=== PATIENT | male | born 1935 | race Caucasian/White ===

== ENCOUNTER 2017-01-07 13:38 | Inpatient (IN) ==
--- NOTE | 2017-01-07 14:26 | Emergency Department Note ---
Disposition Clinical Impression: Atrial fibrillation with rapid ventricular response, Elevated troponin I level , Heart failure Disposition: Admitted As Inpatient Condition: Serious Time of Disposition: 17:48 SOB HPI - General Chief Complaint: ED Shortness of Breath/Dyspnea Stated Complaint: SOB, ABD PAIN Source: patient, family Limitations: no limitations Nursing Notes Reviewed: Yes Vital Signs Reviewed: Yes - History of Present Illness Patient is a 81-year-old male complaining of worsening dyspnea on exertion for the past 2 weeks. Patient has a past history is significant for A. fib, DVT 2010, PE in 2012 and has been on Coumadin everyday since patient also has a history of prostate cancer. Patient states that past 2 days his shortness of breath got worse to where he is daily able to sip of the car without feeling severely short of breath. Patient reports episodes shortness of breath waking him from sleep as well. Patient had an echo in 2012 with an EF of 65-70%. Recent echo 8 days ago showed an EF of 10-15%. Patient was seen by Dr. Muñiz 5 days ago and had a heart catheter done 2 days ago which showed minor blockages and required no stenting. - Related Data Home Medications Medication Instructions Recorded Confirmed Albuterol Sulfate [Proair Hfa] 2 puff IH Q4H PRN 01/05/17 01/07/17 Furosemide [Lasix] 20 mg PO QPM 01/05/17 01/07/17 Warfarin [Coumadin] 5 mg PO SUMOTUTHSA 01/05/17 01/07/17 Furosemide [Lasix] 40 mg PO QAM 01/07/17 01/07/17 Tiotropium [place] [Spiriva] 18 mcg IH DAILY 01/07/17 01/07/17 Warfarin [Coumadin] 7.5 mg PO FR 01/07/17 01/07/17 Warfarin [Coumadin] 10 mg PO WE 01/07/17 01/07/17 Previous Rx's Medication Instructions Recorded Aspirin 81 mg PO DAILY #30 tab.chew 01/05/17 Metoprolol XL (24 HR) Succ [Toprol 50 mg PO DAILY #30 tab.er.24h 01/05/17 Xl] Allergies Allergy/AdvReac Type Severity Reaction Status Date / Time No Known Allergies Allergy Verified 01/05/17 06:36 Review of Systems: Patient admits to lightheadedness periodically shortness of breath, minor cough nonproductive. Patient denies fever, chest pain, back pain, changes in vision, ear pain, abdominal pain, diarrhea All systems ED: reviewed and negative except as stated. Past Medical History - Past Medical History Attestation: Yes The following information was validated with the patient. Source: patient, obtained from family Medical history: Reports: atrial fibrillation, cancer, CHF, COPD, DVT, pulmonary embolus Psychiatric history: Reports: no psych history - Social History Smoking Status: Current every day smoker Smokeless Tobacco Status: No Alcohol use: Reports: none Drug use: Reports: none Physical Exam Vital Signs Temperature 97.4 F L 01/07/17 13:40 Pulse Rate 110 01/07/17 13:40 Respiratory Rate 22 01/07/17 13:40 Blood Pressure 106/76 01/07/17 13:40 O2 Sat by Pulse Oximetry 96 01/07/17 13:40 Temperature 97.4 F L 01/07/17 13:40 Pulse Rate 122 01/07/17 14:06 Respiratory Rate 18 01/07/17 14:06 Blood Pressure 119/108 01/07/17 14:06 O2 Sat by Pulse Oximetry 96 01/07/17 14:06 Oxygen Delivery Oxygen Delivery Nasal Cannula -General Appearance: Patient is a 81-year-old male is alert and oriented 3 and in no acute distress. Patient appears comfortable sitting up in the bed -Neurological exam: Cranial nerves II-12 intact, no focal deficits observed, strength equal 5/5 bilaterally in upper and lower extremities, cerebellar motion test negative. Negative loss of sensation - Head Head exam: atraumatic, normocephalic, normal inspection - Eye Eye exam: Present: normal appearance, PERRL, EOMI, negative for scleral icterus negative for conjunctival pallor - ENT ENT exam: normal exam, normal oropharynx, mucous membranes dry - Neck Neck exam: Present: normal inspection, full ROM, trachea midline, negative JVD - Chest Chest inspection: Present: Patient has bilateral equal rise and fall of chest wall. Non-tender to palpation. - Respiratory Respiratory exam: Clear to auscultation bilaterally without wheezes rales or rhonchi Cardiovascular Cardiovascular exam: Present: irregular rate, irregular rhythm, normal heart sounds, without murmurs rubs or gallops. - Abdominal Exam Abdominal exam: Present: soft, nondistended, Non-Tender light and deep palpation in all quadrants. Bowel sounds normoactive throughout all 4 quadrants. Negative for hyper or hyperresonance. - Extremities Exam Extremities exam: Present: normal inspection, full ROM - Back Exam Back exam: Present: normal inspection, full ROM. Absent: tenderness, CVA tenderness (R), CVA tenderness (L) - Psychiatric Psychiatric exam: Present: normal affect, normal mood - Skin Skin exam: Present: warm, dry, intact, normal color - General Limitations: no limitations General appearance: alert Course Course Narrative: Patient seen and examined. Cardiac workup labs ordered. Chest x-ray ordered - Reevaluation(s) Reevaluation #1: Patient appears to be doing well. No complaints. Time: 15:48 Reevaluation #2: Patient still doing well. No complaints awaiting lab results Time: 16:20 Reevaluation #3: Patient doing well but complains it is hungry. Ordered diet for patient. The patient that be admitting him to the hospital secondary to discussing his case with Dr. Mclean. Patient agrees and sensory. Time: 17:00 - Consultations Consultation #1: Spoke to Dr. Mclean of cardiology. He states is unsure this time why the patient is currently in heart failure or how long the patient has been in A. fib. Recommend starting patient on IV amiodarone and admitted to medicine and let them know to consult him. Time: 16:50 Consultation #2: Dr. Ashley has accepted for admission. 1748 hrs. Time: 17:48 Vital Signs Temperature 97.4 F L 01/07/17 13:40 Pulse Rate 110 01/07/17 13:40 Respiratory Rate 22 01/07/17 13:40 Blood Pressure 106/76 01/07/17 13:40 O2 Sat by Pulse Oximetry 96 01/07/17 13:40 Temperature 98.2 F 01/09/17 11:18 Pulse Rate 108 01/09/17 11:18 Respiratory Rate 12 01/09/17 11:18 Blood Pressure 110/89 01/09/17 11:18 O2 Sat by Pulse Oximetry 96 01/09/17 11:18 Oxygen Delivery Oxygen Delivery Nasal Cannula Shortness of Breath/Dyspnea - MDM Narrative Medical decision making narrative: Mr Alejandro is 81-year-old male complaining of worsening dyspnea on exertion for the past 2 weeks. Patient has a past history is significant for A. fib, DVT 2010, PE in 2012 and has been on Coumadin everyday since patient also has a history of prostate cancer. Patient states that past 2 days his shortness of breath got worse to where he is daily able to sip of the car without feeling severely short of breath. Patient reports episodes shortness of breath waking him from sleep as well. Patient had an echo in 2012 with an EF of 65-70%. Recent echo 8 days ago showed an EF of 10-15%. Patient was seen by Dr. Muñiz 5 days ago and had a heart catheter done 2 days ago which showed minor blockages and required no stenting. Patient's chest x-ray shows: Per radiology: Stable cardiomegaly with mild vascular congestion. This could represent early congestive failure. Patchy asymmetric airspace right lower lobe could be asymmetric edema however superimposed pneumonia is also considered. Patient's CBC shows no signs of elevated white blood cell count or anemia. Patient's chemistry was unremarkable patient's troponin was elevated at 0.05. Patient is currently in no pain or discomfort and chest pain. Patient is having intermittent shortness of breath while at rest. Patient's heart rate 118 so 124 in A. fib RVR. Consulted with Dr. Mclean cardiology recommends patient patient on amiodarone the IV. Is unsure at this morning while patient is going through acute heart failure. There is some irregularity on the right lower lung field on chest x-ray with concerns that this may be pneumonia which is causing irritability leading to A. fib RVR. Patient did have slightly diminished breath sounds on the right with no rales or rhonchi. IV amiodarone was started. Patient is admitted to medicine. Dr. Ashley as accepted for admission. - Medical Records Medical records reviewed: Yes I reviewed the patient's medical records. - Lab Data Lab results reviewed: Yes I reviewed the patient's lab results. Lab results narrative: Short CBC 01/07/17 Range/Units 15:35 WBC 5.2 (4.3-11.1) K/mcL Hgb 14.6 (12.9-16.9) g/dL Hct 43.8 (37.5-50.1) % Plt Count 123 L (140-400) K/mcL Neutrophils # 2.9 (1.6-8.9) K/mcL BMP 01/07/17 Range/Units 15:35 Sodium 141 (136-145) mEq/L Potassium 3.8 (3.5-4.5) mEq/L Chloride 108 (98-109) mEq/L Carbon Dioxide 24 (19-29) mEq/L BUN 20 (8-26) mg/dL Creatinine 1.18 (0.72-1.25) mg/dL Glucose 84 (70-99) mg/dL Calcium 9.1 (8.6-10.8) mg/dL Cardiac Enzymes 01/07/17 Range/Units 15:35 Troponin I 0.05 H* (0-0.03) ng/mL Result diagrams: 01/08/17 04:36 01/09/17 03:55 Lab Results 01/07/17 01/07/17 01/07/17 Range/Units 15:35 15:35 15:35 WBC 5.2 (4.3-11.1) K/mcL RBC 4.61 (4.19-5.50) M/mcL Hgb 14.6 (12.9-16.9) g/dL Hct 43.8 (37.5-50.1) % MCV 95.0 (83.0-100.0) fL MCH 31.7 (28.0-33.3) pg MCHC 33.3 (31.6-35.5) g/dL RDW 15.2 H (11.5-14.5) % Plt Count 123 L (140-400) K/mcL MPV 10.3 (9.4-12.4) fL Immature Gran % 0.2 (0-4) % Seg Neutrophils % 55.4 % Lymphocytes % 29.1 % Monocytes % 11.2 % Eosinophils % 3.5 % Basophils % 0.6 % Neutrophils # 2.9 (1.6-8.9) K/mcL Lymphocytes # 1.5 (0.6-4.6) K/mcL Monocytes # 0.6 (0.0-1.3) K/mcL Eosinophils # 0.2 (0.0-0.6) K/mcL Basophils # 0.0 (0.0-0.2) K/mcL PT (9.4-12.1) Seconds INR Sodium 141 (136-145) mEq/L Potassium 3.8 (3.5-4.5) mEq/L Chloride 108 (98-109) mEq/L Carbon Dioxide 24 (19-29) mEq/L BUN 20 (8-26) mg/dL Creatinine 1.18 (0.72-1.25) mg/dL Est GFR ( Amer) > 60 (> 60) Est GFR (Non-Af Amer) 60 (> 60) BUN/Creatinine Ratio 17 (6-26) Glucose 84 (70-99) mg/dL Calculated Osmolality 294 (280-300) Calcium 9.1 (8.6-10.8) mg/dL Troponin I 0.05 H* (0-0.03) ng/mL 01/07/17 01/07/17 Range/Units 15:35 21:30 WBC (4.3-11.1) K/mcL RBC (4.19-5.50) M/mcL Hgb (12.9-16.9) g/dL Hct (37.5-50.1) % MCV (83.0-100.0) fL MCH (28.0-33.3) pg MCHC (31.6-35.5) g/dL RDW (11.5-14.5) % Plt Count (140-400) K/mcL MPV (9.4-12.4) fL Immature Gran % (0-4) % Seg Neutrophils % % Lymphocytes % % Monocytes % % Eosinophils % % Basophils % % Neutrophils # (1.6-8.9) K/mcL Lymphocytes # (0.6-4.6) K/mcL Monocytes # (0.0-1.3) K/mcL Eosinophils # (0.0-0.6) K/mcL Basophils # (0.0-0.2) K/mcL PT 21.5 H (9.4-12.1) Seconds INR 2.0 Sodium (136-145) mEq/L Potassium (3.5-4.5) mEq/L Chloride (98-109) mEq/L Carbon Dioxide (19-29) mEq/L BUN (8-26) mg/dL Creatinine (0.72-1.25) mg/dL Est GFR ( Amer) (> 60) Est GFR (Non-Af Amer) (> 60) BUN/Creatinine Ratio (6-26) Glucose (70-99) mg/dL Calculated Osmolality (280-300) Calcium (8.6-10.8) mg/dL Troponin I 0.06 H* (0-0.03) ng/mL - Radiology Data Radiology results reviewed: Yes I reviewed the patient's radiology results. Chest X-Ray 01/07/17 14:41 IMPRESSION: Stable cardiomegaly with mild vascular congestion. This could represent early congestive failure. Patchy asymmetric airspace right lower lobe could be asymmetric edema however superimposed pneumonia is also considered. D/ / Colin Coleman MD / Colin Coleman MD Interpreting Provider: Colin Coleman MD - EKG Data EKG attestation: Yes I reviewed and interpreted this EKG. EKG results narrative: EKG dated 01/07/2017 at 1357 hrs. shows A. fib RVR at a rate of [address] depressions or elevations in any leads previously EKG taken 10/05/2013 shows sinus tachycardia at a rate of 119 beats a minute with no signs of ischemia. Attestation Statement - Attestation Attestation: .
[2017-01-07 15:48] LABS: Basophils % 0.6 %; Eosinophils # 0.2 K/mcL (0.0-0.6); Eosinophils % 3.5 %; Hematocrit 43.8 % (37.5-50.1); Hemoglobin 14.6 g/dL (12.9-16.9); Immature Granulocytes % 0.2 % (0-4); Lymphocytes # 1.5 K/mcL (0.6-4.6); Lymphocytes % 29.1 %; Mean Corpuscular HGB Conc 33.3 g/dL (31.6-35.5); Mean Corpuscular Hemoglobin 31.7 pg (28.0-33.3); Mean Platelet Volume 10.3 fL (9.4-12.4); Monocytes # 0.6 K/mcL (0.0-1.3); Monocytes % 11.2 %; Neutrophils # 2.9 K/mcL (1.6-8.9); Platelet Count 123 K/mcL (140-400); Red Blood Count 4.61 M/mcL (4.19-5.50); Red Cell Distribution Width 15.2 % (11.5-14.5); Segmented Neutrophils % 55.4 %
[2017-01-07 16:04] LABS: BUN/Creatinine Ratio 17 (6-26); Blood Urea Nitrogen 20 mg/dL (8-26); Calcium 9.1 mg/dL (8.6-10.8); Carbon Dioxide 24 mEq/L (19-29); Chloride 108 mEq/L (98-109); Glucose 84 mg/dL (70-99); Osmolality,Calculated 294 (280-300); Potassium 3.8 mEq/L (3.5-4.5); Sodium 141 mEq/L (136-145); eGFR For African Americans > 60 (> 60); eGFR For Non-African Americans 60 (> 60)
[2017-01-07] MEDS ORDERED: Amiodarone Premix 150 MG/100 ML BAG IVPB ONE (17:02)
[2017-01-07] MEDS ORDERED: Amiodarone Premix 360 MG/200 ML BAG IVC ONE ×2 (17:02→21:06)
[2017-01-07 18:20] LABS: Prothrombin Time 21.5 Seconds (9.4-12.1)
[2017-01-07] MEDS ORDERED: Aspirin 325 MG TABLET PO ONE (18:44)
--- NOTE | 2017-01-07 18:44 | Emergency Department Note ---
Disposition Clinical Impression: Atrial fibrillation with rapid ventricular response, Elevated troponin I level , Heart failure Disposition: Admitted As Inpatient Condition: Serious General Adult HPI - General Chief complaint: ED Shortness of Breath/Dyspnea Stated complaint: SOB, ABD PAIN Time Seen by Provider: 01/07/17 14:03 Source: patient, family Limitations: no limitations - History of Present Illness Pain Scale: 1 - Related Data Home Medications Medication Instructions Recorded Confirmed Albuterol Sulfate [Proair Hfa] 2 puff IH Q4H PRN 01/05/17 01/07/17 Furosemide [Lasix] 20 mg PO QPM 01/05/17 01/07/17 Warfarin [Coumadin] 5 mg PO SUMOTUTHSA 01/05/17 01/07/17 Furosemide [Lasix] 40 mg PO QAM 01/07/17 01/07/17 Tiotropium [place] [Spiriva] 18 mcg IH DAILY 01/07/17 01/07/17 Warfarin [Coumadin] 7.5 mg PO FR 01/07/17 01/07/17 Warfarin [Coumadin] 10 mg PO WE 01/07/17 01/07/17 Previous Rx's Medication Instructions Recorded Aspirin 81 mg PO DAILY #30 tab.chew 01/05/17 Metoprolol XL (24 HR) Succ [Toprol 50 mg PO DAILY #30 tab.er.24h 01/05/17 Xl] Allergies Allergy/AdvReac Type Severity Reaction Status Date / Time No Known Allergies Allergy Verified 01/05/17 06:36 Past Medical History - Past Medical History Medical history: Reports: atrial fibrillation, cancer, CHF, COPD, DVT, pulmonary embolus Psychiatric history: Reports: no psych history - Social History Smoking Status: Current every day smoker Smokeless Tobacco Status: No Alcohol use: Reports: none Drug use: Reports: none Physical Exam - General Limitations: no limitations General appearance: alert Course Vital Signs Temperature 97.4 F L 01/07/17 13:40 Pulse Rate 110 01/07/17 13:40 Respiratory Rate 22 01/07/17 13:40 Blood Pressure 106/76 01/07/17 13:40 O2 Sat by Pulse Oximetry 96 01/07/17 13:40 Temperature 97.4 F L 01/07/17 13:40 Pulse Rate 101 01/07/17 18:08 Respiratory Rate 20 01/07/17 18:08 Blood Pressure 100/67 01/07/17 18:08 O2 Sat by Pulse Oximetry 94 L 01/07/17 18:08 Oxygen Delivery Oxygen Delivery Nasal Cannula Medical Decision Making - Lab Data Result diagrams: 01/07/17 15:35 01/07/17 15:35 Lab Results 01/07/17 01/07/17 01/07/17 Range/Units 15:35 15:35 15:35 WBC 5.2 (4.3-11.1) K/mcL RBC 4.61 (4.19-5.50) M/mcL Hgb 14.6 (12.9-16.9) g/dL Hct 43.8 (37.5-50.1) % MCV 95.0 (83.0-100.0) fL MCH 31.7 (28.0-33.3) pg MCHC 33.3 (31.6-35.5) g/dL RDW 15.2 H (11.5-14.5) % Plt Count 123 L (140-400) K/mcL MPV 10.3 (9.4-12.4) fL Immature Gran % 0.2 (0-4) % Seg Neutrophils % 55.4 % Lymphocytes % 29.1 % Monocytes % 11.2 % Eosinophils % 3.5 % Basophils % 0.6 % Neutrophils # 2.9 (1.6-8.9) K/mcL Lymphocytes # 1.5 (0.6-4.6) K/mcL Monocytes # 0.6 (0.0-1.3) K/mcL Eosinophils # 0.2 (0.0-0.6) K/mcL Basophils # 0.0 (0.0-0.2) K/mcL PT (9.4-12.1) Seconds INR Sodium 141 (136-145) mEq/L Potassium 3.8 (3.5-4.5) mEq/L Chloride 108 (98-109) mEq/L Carbon Dioxide 24 (19-29) mEq/L BUN 20 (8-26) mg/dL Creatinine 1.18 (0.72-1.25) mg/dL Est GFR ( Amer) > 60 (> 60) Est GFR (Non-Af Amer) 60 (> 60) BUN/Creatinine Ratio 17 (6-26) Glucose 84 (70-99) mg/dL Calculated Osmolality 294 (280-300) Calcium 9.1 (8.6-10.8) mg/dL Troponin I 0.05 H* (0-0.03) ng/mL 01/07/17 Range/Units 15:35 WBC (4.3-11.1) K/mcL RBC (4.19-5.50) M/mcL Hgb (12.9-16.9) g/dL Hct (37.5-50.1) % MCV (83.0-100.0) fL MCH (28.0-33.3) pg MCHC (31.6-35.5) g/dL RDW (11.5-14.5) % Plt Count (140-400) K/mcL MPV (9.4-12.4) fL Immature Gran % (0-4) % Seg Neutrophils % % Lymphocytes % % Monocytes % % Eosinophils % % Basophils % % Neutrophils # (1.6-8.9) K/mcL Lymphocytes # (0.6-4.6) K/mcL Monocytes # (0.0-1.3) K/mcL Eosinophils # (0.0-0.6) K/mcL Basophils # (0.0-0.2) K/mcL PT 21.5 H (9.4-12.1) Seconds INR 2.0 Sodium (136-145) mEq/L Potassium (3.5-4.5) mEq/L Chloride (98-109) mEq/L Carbon Dioxide (19-29) mEq/L BUN (8-26) mg/dL Creatinine (0.72-1.25) mg/dL Est GFR ( Amer) (> 60) Est GFR (Non-Af Amer) (> 60) BUN/Creatinine Ratio (6-26) Glucose (70-99) mg/dL Calculated Osmolality (280-300) Calcium (8.6-10.8) mg/dL Troponin I (0-0.03) ng/mL Critical Care Time Critical Care Time: Yes Total Critical Care Time: 40 Attestation: Critical care performed: Time is exclusive of separately billable procedures. Time includes: direct patient care, patient reassessment, coordination of patient care, interpretation of data (laboratory data, radiology data, and respiratory data), review of patient's medical records, medical consultation and documentation of patient care. Procedures included in critical care time: Procedures excluded from critical care time: Attestation Statement - Attestation Attestation: I examined this patient and my medical decision-making was reviewed with the EDUCATIONAL RECRUITER/PA/Advanced Practice Nurse/Resident Physician. I agree with the documented findings, disposition and treatment plan as described except to the extent set forth below. Patient to emergency Department with shortness of breath. Dyspnea on exertion and orthopnea. Has been feeling bad for the past couple weeks. Sleeping more. States he is waking up short of breath. Patient recently was referred to cardiology for Thursday. He Has Diffuse Moderate Disease but No Interventions. Ejection Fraction Was around 10%. Exam Shows Him in No Distress. He Is Not Hypoxic. Plan. Patient with Pulmonary Edema. Elevated Troponin. He Is Admitted to Medicine with a Cardiology Consult.
[2017-01-07] MEDS ORDERED: Naloxone 0.4 MG/ML INJ IVP PRN (20:47)
[2017-01-07] MEDS ORDERED: Ondansetron 4 MG/2 ML VIAL IVP PRN (20:47)
[2017-01-07] MEDS ORDERED: *HR* Metoprolol 5 MG/5 ML VIAL IVP PRN (20:47)
[2017-01-07] MEDS ORDERED: *HR* Morphine 2 MG/ML SYRINGE IVP PRN (20:47)
--- NOTE | 2017-01-07 20:58 | Internal Med History&Physical ---
<Braulio Saeed - Last Filed: 01/07/17 21:32> Date of Encounter: 01/07/17 Time of Encounter: 20:15 Assessment and Plan (1) Shortness of breath Current visit: Yes Status: Acute Patient shortness of breath likely multifactorial from age fibrillation with RVR , acute on chronic congestive heart failure, potentially pulmonary embolism though less likely given therapeutic on Coumadin and IVC filter in place. Current atrial fibrillation could be causing transient ischemia in the coronary vessels given background of moderate three-vessel disease and current shortness of breath likely anginal equivalent. We will treat patient atrial fibrillation with RVR with amiodarone drip given concern for patient hypotension We will treat acute on chronic congestive heart failure with concern for fluid overload with 1.5 L fluid restricted diet and low dose (2.5 mg an hour) Lasix drip We will continue patient Coumadin Cardiology has been consulted and appreciate recommendations for continued management/care We will continue to monitor on continuous pulse oximetry and telemetry We will obtain blood work with electrolytes including magnesium in the morning (2) Atrial fibrillation with rapid ventricular response Current visit: Yes Status: Acute Recent development of atrial fibrillation with RVR is likely contributory to patient's shortness of breath, but atrial fibrillation was on account of acute on chronic congestive heart failure or possible PE (less likely given therapeutic on Coumadin with IVC filter in place) or other cause currently unsure. Patient placed on amiodarone drip per recommendation of Dr. Mclean (filament coil winder ) We will treat heart failure with low dose Lasix drip given concerns of patient hypotension Cardiology consulted and appreciate recommendations for continuing management/ care (3) Acute on chronic diastolic CHF (congestive heart failure) Current visit: Yes Status: Acute Patient has documented reduced ejection fraction of 10-15%, and this is new from his last echo performed in 2012 showed an EF of 60-65%. Patient underwent cardiac catheterization on 01/05/17 that showed moderate three-vessel disease and EF 10%. This is likely contributing to his current shortness of breath with description of increased abdominal girth, mild pedal edema, and bibasilar rales on auscultation We will start low-dose Lasix drip at 2.5 mg an hour Currently on amiodarone drip Cardiology has been consulted and appreciate recommendations for continued management/care (4) DVT prophylaxis Current visit: Yes Status: Acute Patient had DVTs in the past and pulmonary embolism in 2013. He is on lifelong Coumadin with current INR of 2.0 and has a IVC filter in place We will continue Coumadin (5) Elevated troponin I level Current visit: Yes Status: Acute Likely demand ischemia in setting of moderate three-vessel disease with current acute on chronic congestive heart failure and new onset atrial fibrillation with RVR We will continue to trend Internal Medicine - H&P: HPI Chief complaint: Shortness of breath Admitted From: Home Plans for Post Hospital Care: Home History of present illness: Mr. Alejandro is a 81 year old male with significant medical history of prostate cancer, recently diagnosed CHF (EF of 10-15%), COPD, and prior PE (2012, currently on warfarin) who presents to [facility] with worsening of exertional dyspnea. He states that he has noticed an increased shortness of breath with exertion that has been occurring for about a month now, but that it has gotten worse in the past week and a half. He had an echocardiogram performed on 12/29/16 that showed a reduced ejection fraction of 10-15% (previous EF 60-65% in [facility] 2012) with severe Left ventricular systolic dysfuction and severe reduction in Right ventricular function. He then underwent a cardiac catheterization with Dr. Muñiz on 01/05/17 that showed moderate 3 vessel coronary disease and EF of 10% . His shortness of breath appears to be worsening since his catheterization on . He was found to be in a. fib with rvr at presentation. He states that in the past week with his exertional shortness of breath he has also had a dry cough, some abdominal discomfort that causes greater shortness of breath and occasional chest muscle tenderness. He denies having orthopnea or having any weakness. Past Med Surg Social Fam HX - Past Medical History Medical history: atrial fibrillation, cancer, CHF, COPD, DVT, pulmonary embolus Psychiatric history: no psych history - Social History Smoking Status: Current every day smoker Smokeless Tobacco Status: No Alcohol use: none Drug use: none - Family History Mother Living Status: Age at : 93 Hx Family Cardiac Disorders: Yes Father Living Status: Hx Family Cancer: Yes (prostate) Internal Medicine - H&P: Meds Albuterol Sulfate [Proair Hfa] 2 puff IH Q4H PRN 01/05/17 [History] Aspirin 81 mg PO DAILY #30 tab.chew 01/05/17 [Rx] Furosemide [Lasix] 20 mg PO QPM 01/05/17 [History] Metoprolol XL (24 HR) Succ [Toprol Xl] 50 mg PO DAILY #30 tab.er.24h 01/05/17 [ Rx] Warfarin [Coumadin] 5 mg PO SUMOTUTHSA 01/05/17 [History] Furosemide [Lasix] 40 mg PO QAM 01/07/17 [History] Tiotropium [place] [Spiriva] 18 mcg IH DAILY 01/07/17 [History] Warfarin [Coumadin] 7.5 mg PO FR 01/07/17 [History] Warfarin [Coumadin] 10 mg PO WE 01/07/17 [History] Allergies No Known Allergies Allergy (Verified 01/05/17 06:36) - Constitutional Constitutional: fatigue, no chills, no fever(s), no falls, no weakness - EENT Nose, mouth and throat: dry mouth, other (feeling a "tickle" in his throat and sinuses that cause his cough) - Cardiovascular Cardiovascular ROS IM: as per HPI, dyspnea, dyspnea on exertion, lightheadedness (with standing), no edema, no orthopnea, no palpitations - Respiratory Respiratory: as per HPI, cough, dyspnea, dyspnea on exertion, no hemoptysis, no pain on inspiration, no chest congestion, no excessive phlegm production, no pain with cough - Gastrointestinal Gastrointestinal: as per HPI, abdominal pain, other (increasing abdominal girth) , no constipation, no diarrhea, no hematemesis, no melena, no nausea, no vomiting - Genitourinary Genitourinary ROS male: no dysuria, no hematuria - Integumentary Integumentary IM: no pruritus, no rash - Neurological Neurological ROS: no dizziness, no focal weakness, no headache(s), no numbness, no vertigo, no weakness - Endocrine Endocrine IM: fatigue, no polyuria - Constitutional Vitals: Temp Pulse Resp BP Pulse Ox 97.6 F 112 22 86/75 95 01/07/17 20:21 01/07/17 20:21 01/07/17 20:21 01/07/17 20:21 01/07/17 20:21 Exam: General: Cooperative, pleasant, no acute distress, alert and oriented 3, answers questions appropriately Head: Normocephalic, atraumatic Eye: Conjunctiva pink, sclera anicteric, EOMI, PERRL Neck: Supple, trachea midline, mucosa moist, no erythema or exudates in oropharynx Respiratory: No accessory muscle usage, good air movement, mild bibasilar crackles Cardiovascular: Tachycardia, irregular rhythm, S1 and S2 present, no murmurs/ rubs/gallops/clicks appreciated GI/abdominal: Slight distention, no fluid wave, nontender, soft, normal bowel sounds, no peritoneal signs Extremities: No calf tenderness, noncyanotic, mild pedal edema appreciated, warm , lower extremity pulses palpable and symmetrical Neurological: Alert and oriented 3, no facial droop, no focal deficits Skin: Dry, intact, normal color Internal Med - H&P Results - Labs CBC & Chem 7: 01/07/17 15:35 01/07/17 15:35 <Phil Balderrama - Last Filed: 01/07/17 22:48> Past Med Surg Social Fam HX - Past Surgical History Surgical History: other (RHC/LHC) - EENT Eyes: no blurry vision, no change in vision Ears: no ear pain, no tinnitus Nose, mouth and throat: no sinus pressure, no sore throat - Cardiovascular Cardiovascular ROS IM: dyspnea, dyspnea on exertion - Respiratory Respiratory: dyspnea, dyspnea on exertion - Genitourinary Genitourinary ROS male: no dysuria, no hematuria - Musculoskeletal Musculoskeletal ROS IM: no arthralgias, no back pain - Neurological Neurological ROS: no dizziness, no focal weakness, no frequent falls, no headache(s) - Psychiatric Psychiatric: no anxiety, no depression - Endocrine Endocrine IM: fatigue, no cold intolerance, no heat intolerance - Hematologic/Lymphatic Hematologic/Lymphatic: easy bruising, no lymphadenopathy - Allergic/Immunologic Allergic/Immunologic: no GI upset with certain foods - Constitutional Vitals: Temp Pulse Resp BP Pulse Ox 97.6 F 112 22 86/75 95 01/07/17 20:21 01/07/17 20:21 01/07/17 20:21 01/07/17 20:21 01/07/17 20:21 General appearance: Present: mild distress (mildly SOB), A&O X 3 - Head Head exam: Present: normal inspection - ENT ENT exam: Present: mucous membranes dry, normal oropharynx - Neck Neck exam general surgery: Present: supple, trachea midline - Expanded Neck Exam Neck exam: Absent: carotid bruit - Respiratory Respiratory exam: Present: rales (faint bibasilar rales). Absent: respiratory distress, rhonchi, wheezes - Cardiovascular Cardiovascular exam: Present: irregular rhythm, JVD, tachycardia. Absent: diastolic murmur, systolic murmur - GI/Abdominal GI/Abdominal exam: Present: distended, normal bowel sounds. Absent: guarding, hepatomegaly, rebound, splenomegaly, tenderness Additional comments: mildly distended/increased girth per patient; no appreciable fluid wave or shifting dullness on percussion - Extremities Exam Extremities exam: Present: pedal edema (1+), warm. Absent: calf tenderness, joint swelling - Back Exam Back exam: Present: normal inspection. Absent: CVA tenderness (L), CVA tenderness (R) Internal Med - H&P Results - Labs CBC & Chem 7: 01/07/17 15:35 01/07/17 15:35 Labs: Cardiac Enzymes 01/07/17 Range/Units 21:30 Troponin I 0.06 H* (0-0.03) ng/mL - EKG Data -: EKG Interpreted by Myself - EKG Data Prior EKG available for review: yes When compared to previous EKG: there are significant changes EKG comments: 01/07/17 22:39 Currently in atrial fibrillation with RVR; old EKG show sinus tachycardia and no atrial fibrillation - Diagnostic Studies Chest x-ray Status: image reviewed by me (vacular congestion; cardiomegaly) - Attending Attestation I discussed the patient [facility], PMH, ROS, lab data, and exam findings with Dr. Saeed. I then saw and examined patient independently as well. Pt recently diagnosed with cardiomyopathy. History suggests SOB due to atrial fibrillation and likely acute on chronic systolic CHF. He complains mostly of increased abdominal girth and minimal LE edema. He is now sleeping on his side and unable to lie flat on his back when sleeping (due to SOB). He denies chest pain , but his SOB can certainly be an anginal equivalent. He is therapeutic on his Coumadin and has an IVC filter, so my suspicion of PE is low. Nonetheless, work up for PE/DVT may be indicated if symptoms persist despite treatment for atrial fibrillation/RVR and CHF. We will continue his Coumadin and monitor INR. I recommended to Dr. Saeed a low dose Lasix drip rather than bolus doses of Lasix given his hemodynamic instability. We will titrate his Lasix drip up slowly as his BP and clinical course allow. We will continue Amiodarone drip as initiated in ER and recommended by cardiology. I agree with cardiology consultation. Other than my comments above and noted exam findings, I agree with Dr. Saeed's assessment and plan.
[2017-01-07] MEDS ORDERED: Sennosides/Docusate Sodium TABLET PO PRN (21:00)
[2017-01-07] MEDS ORDERED: Furosemide 40 MG/4 ML VIAL IVP SCH (21:15)
[2017-01-07] MEDS ORDERED: Furosemide 240 MG in D5% in Water 96 ML IVC SCH (21:40)
[2017-01-07] MEDS: Amiodarone Premix 360 MG/200 ML BAG IVC SCH (23:34)
[2017-01-08] MEDS ORDERED: 0.9 % Sodium Chloride 250 ML ONE ×2 (03:11→15:56)
[2017-01-08 05:44] LABS: INR 2.3; Prothrombin Time 25.5 Seconds (9.4-12.1)
[2017-01-08 05:59] LABS: Basophils % 0.7 %; Eosinophils # 0.1 K/mcL (0.0-0.6); Eosinophils % 1.8 %; Hematocrit 42.1 % (37.5-50.1); Hemoglobin 14.4 g/dL (12.9-16.9); Immature Granulocytes % 0.2 % (0-4); Lymphocytes # 1.5 K/mcL (0.6-4.6); Lymphocytes % 27.1 %; Mean Corpuscular HGB Conc 34.2 g/dL (31.6-35.5); Mean Corpuscular Hemoglobin 32.4 pg (28.0-33.3); Mean Corpuscular Volume 94.6 fL (83.0-100.0); Mean Platelet Volume 11.3 fL (9.4-12.4); Monocytes # 0.5 K/mcL (0.0-1.3); Monocytes % 9.5 %; Neutrophils # 3.4 K/mcL (1.6-8.9); Platelet Count 127 K/mcL (140-400); Red Blood Count 4.45 M/mcL (4.19-5.50); Red Cell Distribution Width 15.1 % (11.5-14.5); Segmented Neutrophils % 60.7 %
[2017-01-08 06:20] LABS: Albumin 3.4 g/dL (3.5-5.0); Albumin/Globulin Ratio 0.9 (1.1-2.2); Bilirubin,Total 0.7 mg/dL (0.2-1.2); Calcium 9.2 mg/dL (8.6-10.8); Globulin 3.8 g/dL (2.4-3.5); Phosphorous 3.5 mg/dL (2.3-4.7); Total Protein 7.2 g/dL (6.0-8.3)
[2017-01-08] MEDS: Tiotropium 18 MCG inhalation IH SCH (07:52)
[2017-01-08] MEDS: Acetaminophen 325 MG TABLET PO PRN ×2 (08:04→20:54)
--- NOTE | 2017-01-08 08:27 | Cardiology Consult Note ---
Date of Encounter: 01/08/17 Time of Encounter: 08:22 Assessment and Plan (1) Shortness of breath Current Visit: Yes Status: Acute Patient does have a history of CHF. Last echo from 12/29/16 showed LVEF 10-15% with periods of Afib RVR, severe global LV systolic dysfunciton, RV mildly dilated with severe reduction in function, mild mitral regurg, mild tricuspid regurg, and pulmonic regurg, dilated IVC, moderate pulmonary hypertension. The Etiology of this patient's SOB is likely multifactorial in setting of CHF, COPD, tachycardia induced cardiomyopathy, afib RVR. Patient does not appear fluid overloaded on exam, thus it is unlikely that his SOB is purely from acute CHF. Patient does not weigh himself regularly, but does report a recent 10 pound weight gain. BNP was 1351 Patient does have history of PE in 2012 and has IVC filter placed and is therapeutic on warfarin. Suspicion of PE is low, but cannot be completely ruled out at this time. Patient is requiring 4L of oxygen at this time, and does not have oxygen requirements at baseline. He also had his coumadin held for a few days in preparation for his recent cardiac catheterization. Plan: stopped Amiodarone drip. Added Toprol XL 12.5mg Daily for rate control. Hold for SBP below 90. Will monitor and adjust accordingly. stopped Lasix drip. Kidney function worsening, and patient has low urine output. Consider workup for DVT/PE if patient worsens clinically. Discussed plan with Dr. Mclean. (2) Atrial fibrillation with rapid ventricular response Current Visit: Yes Status: Acute Etiology likely multifactorial in setting of CHF, cardiomyopathy, and is also a likely contributing factor to his SOB. clincial suspicion for PE is low but cannot be ruled out at this time. Added Toprol XL (3) CHRISTOFER (acute kidney injury) Current Visit: Yes Status: Acute Patient's Cr today 1.57, baseline normal. Etiology likely secondary to lasix drip, but obstruction cannot be ruled out at this time. Patient also has had low urine output since lasix drip was started. Bladder scan pending. Stopped Lasix drip. will continue to monitor at this time. (4) Coronary artery disease Current Visit: Yes Status: Acute patient underwent cardiac catheterization on 01/05/17, which showed moderate three vessel coronary artery disease, LV was lower limits of normal, EF 10%, tachycardia induced cardiomyopathy. continue ASA, Started Toprol XL Qualifiers: Coronary Disease-Associated Artery/Lesion type: unspecified vessel or lesion type [place] vs. transplanted heart: unspecified whether [place] or transplanted heart Associated angina: angina presence unspecified Qualified Code(s): I25.10 - Atherosclerotic heart disease of [place] coronary artery without angina pectoris (5) Elevated troponin I level Current Visit: Yes Status: Acute Troponins so far .05, .06, .05 Suspect demand ischemia at this time in setting of CHF, COPD, tachycardia induced , cardiomyopathy. Recent heart cath showed moderate 3 vessel disease, no stents placed. Patient is chest pain free at this time continue to monitor Discussion w patient/family: The assessment and plan as outlined above was discussed with the patient and/or family members who expressed understanding and agreement. All questions were answered. Thank you for involving us in the care of your patient. Please call with any questions. History of Present Illness Consult date: 01/08/17 Requesting physician: Braulio Saeed Consult reason: cardiomyopathy, acute SOB, recent heart cath, possible acute CHF Chief complaint: shortness of breath History of present illness: Mr. Alejandro is a 81 year old male with PMHx of prostate cancer (s/p radical prostatectomy in 1998), COPD (not on any home oxygen), Hx of PE in 2012 ( patient is therapeutic on warfarin, s/p IVC filter placement), Afib, CAD (had cardiac cath on 12/29/16 showing EF 10-15% and showing moderate 3 vessel disease with EF 10%), CHF (last echo on 12/29/16 showed EF 10-15%. Patient came in with CC of SOB and exertional dyspnea x1 month, and has been getting worse the past week. Patient was found to be in Afib RVR upon presentation. Past Med Surg Social Fam HX - Past Medical History Medical history: atrial fibrillation, cancer, CHF, COPD, DVT, pulmonary embolus Psychiatric history: no psych history - Past Surgical History Surgical History: other (RHC/LHC) - Social History Smoking Status: Current every day smoker Smokeless Tobacco Status: No Alcohol use: none Drug use: none - Family History Mother Living Status: Age at : 93 Hx Family Cardiac Disorders: Yes Father Living Status: Hx Family Cancer: Yes (prostate) Medications and Allergies Albuterol Sulfate [Proair Hfa] 2 puff IH Q4H PRN 01/05/17 [History] Aspirin 81 mg PO DAILY #30 tab.chew 01/05/17 [Rx] Furosemide [Lasix] 20 mg PO QPM 01/05/17 [History] Metoprolol XL (24 HR) Succ [Toprol Xl] 50 mg PO DAILY #30 tab.er.24h 01/05/17 [ Rx] Warfarin [Coumadin] 5 mg PO SUMOTUTHSA 01/05/17 [History] Furosemide [Lasix] 40 mg PO QAM 01/07/17 [History] Tiotropium [place] [Spiriva] 18 mcg IH DAILY 01/07/17 [History] Warfarin [Coumadin] 7.5 mg PO FR 01/07/17 [History] Warfarin [Coumadin] 10 mg PO WE 01/07/17 [History] Allergies No Known Allergies Allergy (Verified 01/05/17 06:36) All Systems Review: A 10-system review of systems was performed and is negative for pertinent findings except as documented above in the HPI. - Constitutional Constitutional: weight gain, no chills, no fatigue, no fever(s), no headache(s) - Cardiovascular Cardiovascular: no chest pain at rest, no syncope - Respiratory Respiratory: dyspnea - Gastrointestinal Gastrointestinal: abdominal pain - Neurological Neurological: no syncope Physical Examination Vital Signs, Last 4 Hours Temp Pulse Resp BP Pulse Ox 01/08/17 07:52 18 96 01/08/17 07:30 93.6 F L 104 14 119/93 95 General: Conversant, No Apparent Distress HEENT: Atraumatic, Normocephaly Neck: Other (mild JVD) Cardiac: Other (irregular rhythm) Lungs: Normal Breath Sounds, No Wheeze, Rales, Rhonchi Neuro: Alert and responsive, No focal deficits noted Abdomen: Soft, Non-Tender Extremities: No Cyanosis, No Edema, Normal Pulses, Other (mild clubbing) Results 01/08/17 04:36 01/08/17 04:30 Lab Results 01/08/17 01/08/17 01/08/17 04:15 04:30 04:30 WBC Hgb Hct Plt Count INR 2.3 Sodium 139 Potassium 4.0 Chloride 107 Carbon Dioxide 20 BUN 25 Creatinine 1.57 H Glucose 141 H Calcium 9.2 Magnesium 2.0 Total Bilirubin 0.7 AST 26 ALT 44 Alkaline Phosphatase 67 Troponin I 0.05 H* 01/08/17 04:36 WBC 5.6 Hgb 14.4 Hct 42.1 Plt Count 127 L INR Sodium Potassium Chloride Carbon Dioxide BUN Creatinine Glucose Calcium Magnesium Total Bilirubin AST ALT Alkaline Phosphatase Troponin I Consult Discharge Plan - Plan Referrals: Artis Frausto MD [Primary Care Provider] - 01/14/17 11:30 am
[2017-01-08] MEDS: Pantoprazole 40 MG VIAL IVP SCH (08:55)
[2017-01-08] MEDS: Aspirin 81 MG TAB.CHEW PO SCH (08:57)
[2017-01-08] MEDS: Amiodarone Premix 360 MG/200 ML BAG IVC SCH (09:52)
--- NOTE | 2017-01-08 10:31 | Internal Med Progress Note ---
Date of Encounter: 01/08/17 Time of Encounter: 10:29 - Assessment and plan (1) Atrial fibrillation with rapid ventricular response Current Visit: Yes Status: Acute Assessment and plan: Atrial fibrillation for unknown duration. Patient recently had echocardiogram done, which showed atrial fibrillation with rapid ventricular response along with significant cardiomyopathy and systolic dysfunction. Cardiology consult appreciated. Patient will be tapered off IV amiodarone drip with plan to start oral metoprolol. Continue long-term anticoagulation with Coumadin, INR is noted to be 2.3. Continue telemetry monitoring and supportive care. (2) CHF exacerbation Current Visit: Yes Status: Acute Assessment and plan: Patient had outpatient echocardiogram done 10 days back which showed significantly decreased ejection fraction of 10-15% along with right ventricular dilation and systolic dysfunction, moderate pulmonary hypertension. Patient has been started on IV Lasix drip but noted to have inadequate urine output with worsening renal function. Will hold IV Lasix drip at this time and start IV Lasix 40 mg twice daily. Start fluid restriction and daily weights with urine output monitoring. Supplemental oxygen as needed. Supportive care. Patient also underwent left heart catheterization 2 days back as an outpatient, to rule out ischemic cardiomyopathy. Heart catheter showed mild to moderate three-vessel disease and no intervention was recommended. Qualifiers: Congestive heart failure type: systolic Qualified Code(s): I50.23 - Acute on chronic systolic (congestive) heart failure (3) COPD (chronic obstructive pulmonary disease) Current Visit: Yes Status: Chronic Assessment and plan: Not noted to be in acute exacerbation. We will change albuterol to leave albuterol due to tachycardia and tremors. Continue supplemental oxygen as needed. Qualifiers: COPD type: unspecified COPD Qualified Code(s): J44.9 - Chronic obstructive pulmonary disease, unspecified (4) Prostate cancer Current Visit: Yes Status: Resolved (5) History of pulmonary embolism Current Visit: Yes Status: Chronic Assessment and plan: Patient has history of recurrent DVT and pulmonary embolism for which he is on Coumadin. Continue the same. INR noted to be therapeutic. Plan to evaluate for new event if patient does not symptomatically improve with current management. (6) Coronary artery disease Current Visit: Yes Status: Chronic Qualifiers: Coronary Disease-Associated Artery/Lesion type: [place] artery [place] vs. transplanted heart: [place] and [place] heart Associated angina: without angina Qualified Code(s): I25.10 - Atherosclerotic heart disease of [place] coronary artery without angina pectoris - Subjective Interval history: Feels better. Improved abdominal pain but persistent shortness of breath and some weakness. No chest pain, palpitations. - Constitutional Vitals: Temp Pulse Resp BP Pulse Ox 93.6 F L 104 18 119/93 96 01/08/17 07:30 01/08/17 07:30 01/08/17 07:52 01/08/17 07:30 01/08/17 07:52 General appearance: Present: A&O X 3, answers questions appropriately - Head Head exam: Present: atraumatic, normocephalic - Neck Neck exam general surgery: Present: supple, trachea midline. Absent: lymphadenopathy - Respiratory Respiratory exam: Present: CTAB. Absent: accessory muscle use, rales, rhonchi, wheezes - Cardiovascular Cardiovascular exam: Present: irregular rhythm, +S1, +S2, tachycardia. Absent: diastolic murmur, gallop, rubs, systolic murmur - GI/Abdominal GI/Abdominal exam: Present: normal bowel sounds, soft, no peritoneal signs. Absent: distended, tenderness - Extremities Exam Extremities exam: Present: full ROM, warm, radial pulses palpable and symetrical. Absent: calf tenderness, cyanotic, pedal edema - Neurological Exam Neurological exam: Present: CN II-XII intact, oriented X3, no focal deficits. Absent: pronater drift, facial droop, speech deficit - Skin Skin exam: Present: dry, intact Internal Medicine: Result - Labs CBC & Chem 7: 01/08/17 04:36 01/08/17 04:30 Labs: Short CBC 01/08/17 Range/Units 04:36 WBC 5.6 (4.3-11.1) K/mcL Hgb 14.4 (12.9-16.9) g/dL Hct 42.1 (37.5-50.1) % Plt Count 127 L (140-400) K/mcL Neutrophils # 3.4 (1.6-8.9) K/mcL BMP 01/08/17 04:30 Sodium 139 Potassium 4.0 Chloride 107 Carbon Dioxide 20 BUN 25 Creatinine 1.57 H Glucose 141 H Calcium 9.2 Cardiac Enzymes 01/08/17 Range/Units 04:30 Troponin I 0.05 H* (0-0.03) ng/mL Liver Function 01/08/17 Range/Units 04:30 Total Bilirubin 0.7 (0.2-1.2) mg/dL AST 26 (5-34) Units/L ALT 44 (0-55) Units/L Alkaline Phosphatase 67 (38-126) Units/L Albumin 3.4 L (3.5-5.0) g/dL - ABG Interpretation ABG results: PT/INR, D-dimer PT 25.5 Seconds (9.4-12.1) H 01/08/17 04:15 - VTE Reasons for not Prescribing Prophylaxis: Not indicated-Anticoagulated or INR therapeutic Consult Discharge Plan - Plan Referrals: Artis Frausto MD [Primary Care Provider] - 01/14/17 11:30 am
--- NOTE | 2017-01-08 12:48 | Electrocardiograph Report ---
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
[2017-01-08] MEDS: Metoprolol XL (24 HR) Succ 25 MG TAB.ER.24H PO SCH (13:32)
[2017-01-08] MEDS ORDERED: *HR* Warfarin 5 MG TABLET PO SCH (18:00)
[2017-01-08] MEDS ORDERED: Warfarin perPT PO PRN (18:00)
[2017-01-08] MEDS: Furosemide 40 MG/4 ML VIAL IVP SCH (19:40)
[2017-01-08] MEDS: Levalbuterol Neb 1.25 MG/3 ML IH SCH (22:56)
[2017-01-09] MEDS: Levalbuterol Neb 1.25 MG/3 ML IH SCH ×4 (04:25→22:43)
[2017-01-09 04:40] LABS: INR 2.6; Prothrombin Time 28.5 Seconds (9.4-12.1)
[2017-01-09 04:57] LABS: Calcium 8.8 mg/dL (8.6-10.8); Potassium 4.3 mEq/L (3.5-4.5)
[2017-01-09] MEDS: Pantoprazole 40 MG VIAL IVP SCH (09:08)
[2017-01-09] MEDS: Furosemide 40 MG/4 ML VIAL IVP SCH ×2 (09:08→16:49)
--- NOTE | 2017-01-09 09:16 | Cardiology Progress Note ---
Date of Encounter: 01/09/17 Time of Encounter: 09:12 Assessment and Plan (1) Shortness of breath Current Visit: Yes Status: Acute Patient does have a history of CHF. Last echo from 12/29/16 showed LVEF 10-15% with periods of Afib RVR, severe global LV systolic dysfunciton, RV mildly dilated with severe reduction in function, mild mitral regurg, mild tricuspid regurg, and pulmonic regurg, dilated IVC, moderate pulmonary hypertension. The Etiology of this patient's SOB is likely multifactorial in setting of CHF, COPD, tachycardia induced cardiomyopathy, afib RVR. Patient does not appear fluid overloaded on exam, thus it is unlikely that his SOB is purely from acute CHF. Patient does not weigh himself regularly, but does report a recent 10 pound weight gain. BNP was 1351 Patient does have history of PE in 2012 and has IVC filter placed and is therapeutic on warfarin. Suspicion of PE is low, but cannot be completely ruled out at this time. Patient is requiring 4L of oxygen at this time, and does not have oxygen requirements at baseline. He also had his coumadin held for a few days in preparation for his recent cardiac catheterization. Right pleural effusion noted Plan: According to tele of past 12 hours: min HR 61, Max HR 120s, Average HR 80s. Continue Toprol XL 12.5mg Daily for rate control. Hold for SBP below 90. Will monitor and adjust accordingly. continue diuresis with 40mg IV lasix BID while closely monitoring renal function. Retroperitoneal ultrasound showed no obvious signs of obstruction. Consider workup for DVT/PE if patient worsens clinically. Plan discussed with Dr. Mclean. (2) Atrial fibrillation with rapid ventricular response Current Visit: Yes Status: Acute Etiology likely multifactorial in setting of CHF, cardiomyopathy, and is also a likely contributing factor to his SOB. clincial suspicion for PE is low but cannot be ruled out at this time. Added Toprol XL, Plan: As above. (3) CHRISTOFER (acute kidney injury) Current Visit: Yes Status: Acute Patient's Cr today 1.68, baseline normal. Etiology likely secondary to lasix, Retroperitoneal ultrasound showed enlarged left kidney with multiple cysts, no evidence of hydronephrosis, no significant bladder abnormalities. Patient continues to have low urine output. lasix drip discontinued yesterday, patient now on lasix 40mg IV BID will continue to monitor at this time, and continue diuresis while monitoring kidney function. (4) Coronary artery disease Current Visit: Yes Status: Chronic patient underwent cardiac catheterization on 01/05/17, which showed moderate three vessel coronary artery disease, LV was lower limits of normal, EF 10%, tachycardia induced cardiomyopathy. continue ASA, Started Toprol XL Qualifiers: Coronary Disease-Associated Artery/Lesion type: [place] artery [place] vs. transplanted heart: [place] heart Associated angina: without angina Qualified Code(s): I25.10 - Atherosclerotic heart disease of [place] coronary artery without angina pectoris (5) Elevated troponin I level Current Visit: Yes Status: Acute Troponins so far .05, .06, .05 Suspect demand ischemia at this time in setting of CHF, COPD, tachycardia induced , cardiomyopathy. Recent heart cath showed moderate 3 vessel disease, no stents placed. Patient is chest pain free at this time continue to monitor Discussion w patient/family: The assessment and plan as outlined above was discussed with the patient and/or family members who expressed understanding and agreement. All questions were answered. Thank you for involving us in the care of your patient. Please call with any questions. Subjective Principal diagnosis: Afib RVR Interval history: 81 year old male evaluated at bedside. He was sitting up in bed eating breakfast. He is still requiring 4L oxygen. He states he feels well rested, and feels better than he did yesterday. Objective Vital Signs, Last 4 Hours Temp Pulse Resp BP Pulse Ox 01/09/17 09:00 105 92 L 01/09/17 08:34 97.6 F 105 16 100/74 87 L 01/09/17 05:43 97.7 F 78 20 101/77 96 General: Conversant, No Apparent Distress HEENT: Atraumatic, Normocephaly Neck: Other (mild JVD noted. ) Cardiac: Reg Rate and Rhythm Lungs: Normal Breath Sounds, No Wheeze, Rales, Rhonchi Neuro: Alert and responsive, No focal deficits noted Abdomen: Soft, Non-Tender Extremities: No Cyanosis, No Edema, Normal Pulses, Other (mild upper extremity clubbing noted. ) Results 01/08/17 04:36 01/09/17 03:55 Lab Results 01/08/17 01/09/17 01/09/17 04:36 03:55 03:55 INR 2.6 Sodium 139 Potassium 4.3 Chloride 107 Carbon Dioxide 20 BUN 30 H Creatinine 1.68 H Glucose 97 Calcium 8.8 B-Natriuretic Peptide 1351 H - VTE Reasons for not Prescribing Prophylaxis: Not indicated-Anticoagulated or INR therapeutic Consult Discharge Plan - Plan Referrals: Artis Frausto MD [Primary Care Provider] - 01/14/17 11:30 am
[2017-01-09] MEDS: Tiotropium 18 MCG inhalation IH SCH (09:57)
[2017-01-09] MEDS: Metoprolol XL (24 HR) Succ 25 MG TAB.ER.24H PO SCH (10:07)
[2017-01-09] MEDS: Aspirin 81 MG TAB.CHEW PO SCH (10:07)
--- NOTE | 2017-01-09 12:52 | Internal Med Progress Note ---
Date of Encounter: 01/09/17 Time of Encounter: 12:49 - Assessment and plan (1) CHRISTOFER (acute kidney injury) Current Visit: Yes Status: Acute Assessment and plan: Unsure if patient has chronic kidney disease. Serum creatinine is currently worsening due to use of aggressive diuresis including recent Lasix drip and current Lasix IV pushes. Continue to monitor creatinine; patient does require Lasix at this time due to acute CHF. Renal ultrasound shows no evidence of hydronephrosis, shows right renal cysts. Noted to have appropriate urine output since Rios catheterization. (2) Atrial fibrillation with rapid ventricular response Current Visit: Yes Status: Acute Assessment and plan: Atrial fibrillation for unknown duration. Heart rate is much better today but continues to have in the low 100s. Increase metoprolol to 25 mg daily and titrate as blood pressure tolerates. Continue long-term anticoagulation with Coumadin, INR is noted to be 2.6. Continue telemetry monitoring and supportive care. (3) CHF exacerbation Current Visit: Yes Status: Acute Assessment and plan: Improving clinically. Noted to have significant amount of urine output since receiving a Rios catheter yesterday. Continue Lasix 40 mg IV twice daily. Monitor renal function, currently worsening but expect to stabilize over the next 2 days. Continue fluid restriction and daily weights with urine output monitoring. Supplemental oxygen as needed. Patient will need home oxygen evaluation prior to discharge. Supportive care. Patient had outpatient echocardiogram done 10 days back which showed significantly decreased ejection fraction of 10-15% along with right ventricular dilation and systolic dysfunction, moderate pulmonary hypertension. Patient also underwent left heart catheterization 2 days back as an outpatient, to rule out ischemic cardiomyopathy. Heart catheter showed mild to moderate three-vessel disease and no intervention was recommended. Qualifiers: Congestive heart failure type: systolic Qualified Code(s): I50.23 - Acute on chronic systolic (congestive) heart failure (4) COPD (chronic obstructive pulmonary disease) Current Visit: Yes Status: Chronic Assessment and plan: Not noted to be in acute exacerbation. Continue when necessary levalbuterol. Continue supplemental oxygen as needed. Qualifiers: COPD type: unspecified COPD Qualified Code(s): J44.9 - Chronic obstructive pulmonary disease, unspecified (5) Prostate cancer Current Visit: Yes Status: Resolved (6) History of pulmonary embolism Current Visit: Yes Status: Chronic Assessment and plan: Patient has history of recurrent DVT and pulmonary embolism for which he is on Coumadin. Continue the same. INR noted to be therapeutic. (7) Coronary artery disease Current Visit: Yes Status: Chronic Qualifiers: Coronary Disease-Associated Artery/Lesion type: [place] artery [place] vs. transplanted heart: [place] heart Associated angina: without angina Qualified Code(s): I25.10 - Atherosclerotic heart disease of [place] coronary artery without angina pectoris - Subjective Interval history: Feels much better; improved urine output after Rios catheter insertion; improving shortness of breath; - Constitutional Vitals: Temp Pulse Resp BP Pulse Ox 98.2 F 105 12 110/89 94 L 01/09/17 11:18 01/09/17 12:24 01/09/17 11:18 01/09/17 11:18 01/09/17 12:24 General appearance: Present: A&O X 3, answers questions appropriately - Respiratory Respiratory exam: Present: decreased breath sounds (Slightly decreased at the right base), CTAB. Absent: accessory muscle use, rales, rhonchi, wheezes - Cardiovascular Cardiovascular exam: Present: irregular rhythm, +S1, +S2, tachycardia. Absent: diastolic murmur, gallop, rubs, systolic murmur - GI/Abdominal GI/Abdominal exam: Present: normal bowel sounds, soft, no peritoneal signs. Absent: distended, tenderness - Extremities Exam Extremities exam: Present: warm, radial pulses palpable and symetrical. Absent : calf tenderness, cyanotic, pedal edema Internal Medicine: Result - Labs CBC & Chem 7: 01/08/17 04:36 01/09/17 03:55 Labs: BMP 01/09/17 03:55 Sodium 139 Potassium 4.3 Chloride 107 Carbon Dioxide 20 BUN 30 H Creatinine 1.68 H Glucose 97 Calcium 8.8 - ABG Interpretation ABG results: PT/INR, D-dimer PT 28.5 Seconds (9.4-12.1) H 01/09/17 03:55 - Impressions Impressions Retroperitoneum Ultrasound 01/08/17 21:45 IMPRESSION: 1. Enlarged left kidney with multiple anechoic cysts confirmed based upon review of a remote CT. There is no evidence of hydronephrosis. 2. No significant abnormalities of the bladder. Limited evaluation due to nondistention with Rios catheter present. 3. Right pleural effusion. D/ / Sanket Joseph MD / Sanket Joseph MD Interpreting Provider: Sanket Joseph MD - VTE Reasons for not Prescribing Prophylaxis: Not indicated-Anticoagulated or INR therapeutic Consult Discharge Plan - Plan Referrals: Artis Frausto MD [Primary Care Provider] - 01/14/17 11:30 am
[2017-01-09] MEDS ORDERED: *HR* Warfarin 4 MG TABLET PO ONE (18:00)
[2017-01-09] MEDS ORDERED: *HR* Warfarin 7.5 MG TABLET PO SCH (18:00)
[2017-01-09] MEDS: Acetaminophen 325 MG TABLET PO PRN (19:36)
[2017-01-10] MEDS: Levalbuterol Neb 1.25 MG/3 ML IH SCH ×4 (03:32→22:58)
[2017-01-10 06:32] LABS: INR 2.6; Prothrombin Time 28.5 Seconds (9.4-12.1)
[2017-01-10 06:38] LABS: Calcium 8.6 mg/dL (8.6-10.8); Magnesium 1.8 mg/dL (1.6-2.6); Potassium 3.3 mEq/L (3.5-4.5)
[2017-01-10] MEDS: Pantoprazole 40 MG VIAL IVP SCH (07:48)
[2017-01-10] MEDS: Aspirin 81 MG TAB.CHEW PO SCH (07:48)
[2017-01-10] MEDS: Metoprolol XL (24 HR) Succ 25 MG TAB.ER.24H PO SCH (07:48)
[2017-01-10] MEDS: Furosemide 40 MG/4 ML VIAL IVP SCH ×2 (07:49→17:04)
[2017-01-10] MEDS ORDERED: Magnesium Sulfate 2 GM in D5% in Water 100 ML IVPB ONE (08:04)
--- NOTE | 2017-01-10 10:22 | Cardiology Progress Note ---
Date of Encounter: 01/10/17 Time of Encounter: 10:20 Assessment and Plan (1) CHF exacerbation Current Visit: Yes Status: Acute Suspect dyspnea multifactoral in the setting of systolic CHF exacerbation, afib with RVR, and COPD. TTE 12/29/16: LVEF 10-15%, severe global LV systolic dysfunciton, RV mildly dilated with severe reduction in function, mild MR/TR/OH, moderate PH. Mr. Alejandro reports dyspnea has improved this AM; however not yet at baseline. 24 I&O: -1810 mL, cumulative -510mL. >500 mL noted in catheter bag. Continue IV lasix, monitor electrolytes closely. Blood pressure and HR improved ; kidney function improving. Continue Toprol XL. No ACEi/ARB d/t CHRISTOFER and hypotension, consider adding as outpatient if able. Continue strict I&Os, daily weights, Na/fluid restriction diet. CHF teaching provided, will need reinforced throughout hospital stay. Will continue to follow. Will need close outpatient follow-up with Dr. Muñiz. Qualifiers: Congestive heart failure type: systolic Qualified Code(s): I50.23 - Acute on chronic systolic (congestive) heart failure (2) Non-ischemic cardiomyopathy Current Visit: Yes Status: Acute Plan as above. LHC 01/05/17: moderate, non-obstructive CAD. Likely tachycardia induced cardiomyopathy. (3) Atrial fibrillation with rapid ventricular response Current Visit: Yes Status: Acute Rate control improved with addition of Toprol XL. Telemetry: avg HR=98 afib. HR 90's upon exam. Continue to increase dose and BP will tolerate. Anticoagulated on Coumadin, INR therapeutic. (4) Elevated troponin I level Current Visit: Yes Status: Acute Mild, adynamic troponin elevation in the setting of acute CHF and atrial fibrillation with RVR. Likely demand ischemia. Denies chest pain or discomfort. Recent LHC showed non-obstructive CAD. (5) CHRISTOFER (acute kidney injury) Current Visit: Yes Status: Acute SCr improved today. Retroperitoneal ultrasound showed enlarged left kidney with multiple cysts, no evidence of hydronephrosis, no significant bladder abnormalities. . Discussion w patient/family: The assessment and plan as outlined above was discussed with the patient and/or family members who expressed understanding and agreement. All questions were answered. Thank you for involving us in the care of your patient. Please call with any questions. The patient will be discussed and reviewed with Dr. Carl Mclean; changes to be made accordingly. Subjective Principal diagnosis: Afib RVR Objective Vital Signs, Last 4 Hours Temp Pulse Resp BP Pulse Ox 01/10/17 07:45 97 01/10/17 07:15 97.5 F L 99 20 103/71 94 L Results 01/08/17 04:36 01/10/17 06:08 Lab Results 01/10/17 01/10/17 06:08 06:08 INR 2.6 Sodium 140 Potassium 3.3 L D Chloride 107 Carbon Dioxide 24 BUN 27 H Creatinine 1.41 H Glucose 85 Calcium 8.6 Magnesium 1.8 - VTE Reasons for not Prescribing Prophylaxis: Not indicated-Anticoagulated or INR therapeutic Consult Discharge Plan - Plan Referrals: Artis Frausto MD [Primary Care Provider] - 01/14/17 11:30 am
[2017-01-10] MEDS: Tiotropium 18 MCG inhalation IH SCH (10:30)
--- NOTE | 2017-01-10 11:25 | Internal Med Progress Note ---
Date of Encounter: 01/10/17 Time of Encounter: 11:24 - Assessment and plan (1) CHRISTOFER (acute kidney injury) Current Visit: Yes Status: Acute Assessment and plan: Unsure if patient has chronic kidney disease. Acute kidney injury due to use of aggressive diuresis including recent Lasix drip and current Lasix IV pushes. Improving serum creatinine. patient does require Lasix at this time due to acute CHF. Renal ultrasound shows no evidence of hydronephrosis, shows right renal cysts. (2) Atrial fibrillation with rapid ventricular response Current Visit: Yes Status: Acute Assessment and plan: Atrial fibrillation for unknown duration. Heart rate is better controlled. Continue metoprolol 50 mg daily and titrate as blood pressure tolerates. Continue long-term anticoagulation with Coumadin, INR is noted to be 2.6. Continue telemetry monitoring and supportive care. (3) CHF exacerbation Current Visit: Yes Status: Acute Assessment and plan: Improving clinically. Cardiology follow-up appreciated, agree with current management. Noted to have neck negative fluid balance of 1.8 L yesterday. Continue Lasix 40 mg IV twice daily. Monitor renal function, currently improving. Continue fluid restriction and daily weights with urine output monitoring. Supplemental oxygen as needed. Patient will need home oxygen evaluation prior to discharge. Supportive care. Patient had outpatient echocardiogram done 10 days back which showed significantly decreased ejection fraction of 10-15% along with right ventricular dilation and systolic dysfunction, moderate pulmonary hypertension. Patient also underwent left heart catheterization 2 days back as an outpatient, to rule out ischemic cardiomyopathy. Heart catheter showed mild to moderate three-vessel disease and no intervention was recommended. Qualifiers: Congestive heart failure type: systolic Qualified Code(s): I50.23 - Acute on chronic systolic (congestive) heart failure (4) COPD (chronic obstructive pulmonary disease) Current Visit: Yes Status: Chronic Qualifiers: COPD type: unspecified COPD Qualified Code(s): J44.9 - Chronic obstructive pulmonary disease, unspecified (5) Prostate cancer Current Visit: Yes Status: Resolved (6) History of pulmonary embolism Current Visit: Yes Status: Chronic (7) Coronary artery disease Current Visit: Yes Status: Chronic Qualifiers: Coronary Disease-Associated Artery/Lesion type: [place] artery [place] vs. transplanted heart: [place] heart Associated angina: without angina Qualified Code(s): I25.10 - Atherosclerotic heart disease of [place] coronary artery without angina pectoris (8) Hypokalemia Current Visit: Yes Status: Acute Assessment and plan: Due to diuretics. Replace with oral potassium chloride. - Subjective Interval history: Feels better but still has some shortness of breath. Also had some difficulty breathing last night with desaturation. No chest pain, palpitations, nausea. Plan of care explained to his daughter at bedside. - Constitutional Vitals: Temp Pulse Resp BP Pulse Ox 97.5 F L 107 16 103/71 91 L 01/10/17 07:15 01/10/17 11:07 01/10/17 10:32 01/10/17 07:15 01/10/17 10:32 General appearance: Present: A&O X 3, answers questions appropriately - Respiratory Respiratory exam: Present: decreased breath sounds (At the right base), CTAB. Absent: accessory muscle use, rales, rhonchi, wheezes - Cardiovascular Cardiovascular exam: Present: irregular rhythm, +S1, +S2. Absent: diastolic murmur, gallop, rubs, systolic murmur - Extremities Exam Extremities exam: Present: full ROM, pedal edema (Trace bilateral ankle edema), warm, radial pulses palpable and symetrical. Absent: calf tenderness, cyanotic - Neurological Exam Neurological exam: Present: CN II-XII intact, oriented X3, no focal deficits. Absent: pronater drift, facial droop, speech deficit Internal Medicine: Result - Labs CBC & Chem 7: 01/08/17 04:36 01/10/17 06:08 Labs: BMP 01/10/17 06:08 Sodium 140 Potassium 3.3 L D Chloride 107 Carbon Dioxide 24 BUN 27 H Creatinine 1.41 H Glucose 85 Calcium 8.6 - ABG Interpretation ABG results: PT/INR, D-dimer PT 28.5 Seconds (9.4-12.1) H 01/10/17 06:08 - VTE Reasons for not Prescribing Prophylaxis: Not indicated-Anticoagulated or INR therapeutic Consult Discharge Plan - Plan Referrals: Artis Frausto MD [Primary Care Provider] - 01/14/17 11:30 am
[2017-01-10] MEDS ORDERED: Saline Nasal Spray 44 ML BOTTLE NS PRN (16:14)
[2017-01-10] MEDS ORDERED: *HR* Warfarin 5 MG TABLET PO ONE (18:00)
[2017-01-10] MEDS: Acetaminophen 325 MG TABLET PO PRN (22:26)
[2017-01-11] MEDS: Levalbuterol Neb 1.25 MG/3 ML IH SCH ×3 (04:22→16:30)
[2017-01-11 08:31] LABS: INR 2.6
[2017-01-11 08:33] LABS: BUN/Creatinine Ratio 16 (6-26); Blood Urea Nitrogen 21 mg/dL (8-26); Calcium 8.5 mg/dL (8.6-10.8); Carbon Dioxide 29 mEq/L (19-29); Chloride 106 mEq/L (98-109); Glucose 81 mg/dL (70-99); Osmolality,Calculated 296 (280-300); Potassium 3.7 mEq/L (3.5-4.5); Sodium 142 mEq/L (136-145); eGFR For African Americans > 60 (> 60); eGFR For Non-African Americans 51 (> 60)
[2017-01-11] MEDS ORDERED: Furosemide 20 MG TABLET PO STA (09:33)
[2017-01-11] MEDS: Furosemide 40 MG/4 ML VIAL IVP SCH (09:34)
[2017-01-11] MEDS: Aspirin 81 MG TAB.CHEW PO SCH (09:49)
[2017-01-11] MEDS: Pantoprazole 40 MG VIAL IVP SCH (09:49)
[2017-01-11] MEDS: Metoprolol XL (24 HR) Succ 25 MG TAB.ER.24H PO SCH (09:49)
--- NOTE | 2017-01-11 09:56 | Cardiology Progress Note ---
Date of Encounter: 01/11/17 Time of Encounter: 09:40 Assessment and Plan (1) CHF exacerbation Current Visit: Yes Status: Acute Suspect dyspnea multifactoral in the setting of systolic CHF exacerbation, afib with RVR, and COPD. TTE 12/29/16: LVEF 10-15%, severe global LV systolic dysfunciton, RV mildly dilated with severe reduction in function, mild MR/TR/DE, moderate PH. Mr. Alejandro reports dyspnea has improved this AM; nearing baseline. He continues to be on 5 Lpm of oxygen via n/c--recommend to titrate off to keep SP02 >92% as patient is not supplemental oxygen at home. 24 I&O: -1891 mL, cumulative -2224 mL. Continue IV lasix, monitor electrolytes closely, transition to oral lasix by discharge. Blood pressure and HR improved; kidney function improving. Continue Toprol XL. No ACEi/ARB d/t CHRISTOFER and hypotension, consider adding as outpatient if able. Continue strict I&Os, daily weights, Na/fluid restriction diet. CHF teaching provided, will need reinforced throughout hospital stay. Will continue to follow. Will need close outpatient follow-up with Dr. Muñiz. Qualifiers: Congestive heart failure type: systolic Qualified Code(s): I50.23 - Acute on chronic systolic (congestive) heart failure (2) Non-ischemic cardiomyopathy Current Visit: Yes Status: Acute Plan as above. LHC 01/05/17: moderate, non-obstructive CAD. Likely tachycardia induced cardiomyopathy. (3) Atrial fibrillation with rapid ventricular response Current Visit: Yes Status: Acute Rate control improved with addition of Toprol XL. Telemetry: avg QX=590 afib. HR 90's upon exam. Continue to increase dose and BP will tolerate. Anticoagulated on Coumadin, INR therapeutic. (4) Elevated troponin I level Current Visit: Yes Status: Acute Mild, adynamic troponin elevation in the setting of acute CHF and atrial fibrillation with RVR. Likely demand ischemia. Denies chest pain or discomfort. Recent LHC showed non-obstructive CAD. (5) CHRISTOFER (acute kidney injury) Current Visit: Yes Status: Acute SCr improved today. Retroperitoneal ultrasound showed enlarged left kidney with multiple cysts, no evidence of hydronephrosis, no significant bladder abnormalities. Discussion w patient/family: The assessment and plan as outlined above was discussed with the patient and/or family members who expressed understanding and agreement. All questions were answered. Thank you for involving us in the care of your patient. Please call with any questions. The patient was discussed and reviewed with Dr. Carl Mclean; Cardiology will sign-off. Will arrange for outpatient follow-up with Dr. Muñiz in 1 week. Subjective Principal diagnosis: Afib RVR Interval history: Seen and examined. Reports he feels much better today; dyspnea is nearing baseline. Objective Vital Signs, Last 4 Hours Temp Pulse Resp BP Pulse Ox 01/11/17 09:04 97.6 F 102 16 98/66 95 General: Conversant, No Apparent Distress HEENT: Atraumatic, Normocephaly Neck: Other (+JVD) Cardiac: Other (irregularly irregular) Lungs: Other (Wheezes throughout) Neuro: Alert and responsive Abdomen: Soft Skin: No rashes noted on visualized skin Musculoskeletal: No Chest Wall Tenderness Extremities: No Edema, Normal Pulses Results 01/08/17 04:36 01/11/17 08:10 Lab Results 01/11/17 01/11/17 08:10 08:10 INR 2.6 Sodium 142 Potassium 3.7 Chloride 106 Carbon Dioxide 29 BUN 21 Creatinine 1.35 H Glucose 81 Calcium 8.5 L Magnesium 2.0 Active Medications Acetaminophen (Tylenol) 650 mg PO Q6HR PRN PRN Reason: Fever or mild pain Stop: 07/09/17 20:48 Last Admin: 01/10/17 22:26 Dose: 650 mg Aspirin (Aspirin) 81 mg PO DAILY CLARIBEL Stop: 07/10/17 09:01 Last Admin: 01/11/17 09:49 Dose: 81 mg Docusate Sodium (Colace) 100 mg PO BID PRN PRN Reason: Constipation Stop: 07/09/17 20:48 Furosemide (Lasix) 40 mg IVP BIDDIURETIC CLARIBEL Stop: 07/10/17 17:31 Last Admin: 01/11/17 09:34 Dose: Not Given Levalbuterol HCl (Xopenex) 1.25 mg IH [id number] CLARIBEL Stop: 07/10/17 22:01 Last Admin: 01/11/17 04:22 Dose: 1.25 mg Metoprolol Succinate (Toprol Xl) 25 mg PO DAILY [facility] Stop: 07/10/17 13:01 Last Admin: 01/11/17 09:49 Dose: 25 mg Morphine Sulfate (Morphine Sulfate) 2 mg IVP Q4HR PRN PRN Reason: Severe Pain, chest pain Stop: 07/09/17 20:48 Naloxone HCl (Narcan) 0.4 mg IVP Q2MIN PRN PRN Reason: Opioid Reversal Stop: 07/09/17 20:48 Ondansetron HCl (Zofran) 4 mg IVP Q8HR PRN PRN Reason: Nausea And Vomiting Stop: 07/09/17 20:48 Last Admin: 01/08/17 07:52 Dose: 4 mg Pantoprazole Sodium (Protonix) 40 mg IVP DAILY [facility] Stop: 07/10/17 09:01 Last Admin: 01/11/17 09:49 Dose: 40 mg Potassium Chloride (Potassium Chloride) 10 meq PO BIDWM [facility] Stop: 07/12/17 17:01 Last Admin: 01/11/17 09:49 Dose: 10 meq Senna/Docusate Sodium (Senna Plus) 2 each PO BID PRN; Protocol PRN Reason: Constipation Stop: 07/09/17 21:01 Sodium Chloride ([place]al [place]) 2 spray NS QID PRN PRN Reason: Congestion Stop: 07/12/17 17:01 Last Admin: 01/10/17 17:08 Dose: 2 spray Tiotropium [place] (Spiriva) 18 mcg IH DAILY CLARIBEL PRN Reason: Protocol Stop: 07/10/17 09:01 Last Admin: 01/10/17 10:30 Dose: 18 mcg Warfarin Sodium (Coumadin Perpt) 1 each PO DAILY@1800 PRN PRN Reason: SEE COMMENTS Stop: 07/10/17 18:01 Warfarin Sodium (Coumadin) 4 mg PO ONCE ONE Stop: 01/11/17 18:01 Intake & Output 01/08/17 01/09/17 01/10/17 01/11/17 23:59 23:59 23:59 23:59 Intake Total 1615 / 1615 240 / 240 1109 / 1109 597 / 597 Output Total 475 / 475 0 / 2050 3000 / 3000 0 / 0 Balance 1140 / 1140 -1810 / -1810 -1891 / -1891 597 / 597 Weight 81.692 kg - Imaging and Cardiology Echo: report reviewed Cardiac cath: report reviewed Other Results: 12 hour tele: avg VJ=[id number]. Large amount of artifact noted. - EKG Interpretation EKG results cardiology: personally reviewed - VTE Reasons for not Prescribing Prophylaxis: Not indicated-Anticoagulated or INR therapeutic Consult Discharge Plan - Plan Referrals: Artis Frausto MD [Primary Care Provider] - 01/14/17 11:30 am
[2017-01-11] MEDS: Tiotropium 18 MCG inhalation IH SCH (10:16)
[2017-01-11] MEDS ORDERED: Metoprolol XL (24 HR) Succ 25 MG TAB.ER.24H PO SCH (13:52)
[2017-01-11] MEDS ORDERED: *HR* Metoprolol 5 MG/5 ML VIAL IVP ONE ×2 (13:52→13:58)
[2017-01-11] MEDS ORDERED: Metoprolol XL (24 HR) Succ 25 MG TAB.ER.24H PO STA (15:59)
[2017-01-11] MEDS: Furosemide 40 MG TABLET PO SCH (16:04)
[2017-01-11] MEDS: Acetaminophen 325 MG TABLET PO PRN (16:26)
--- NOTE | 2017-01-11 17:20 | Internal Med Progress Note ---
Date of Encounter: 01/11/17 Time of Encounter: 12:10 - Assessment and plan (1) CHRISTOFER (acute kidney injury) Current Visit: Yes Status: Acute Assessment and plan: Unsure if patient has chronic kidney disease. Acute kidney injury due to use of aggressive diuresis. Improving serum creatinine. patient does require Lasix at this time due to acute CHF, changed to PO Lasix today. Renal ultrasound shows no evidence of hydronephrosis, shows right renal cysts. (2) Atrial fibrillation with rapid ventricular response Current Visit: Yes Status: Acute Assessment and plan: Atrial fibrillation for unknown duration. Heart rate has been better controlled since yesterday, but noted to have persistent 120-130 for 1-2 hours this afternoon; Increase Metoprolol to 50mg daily along with PRN IV Lopressor as BP tolerates; SBP in 90s, so cannot give Cardizem and best to avoid Digoxin due to renal dysfunction; will consider these if BP stabilizes/persistent RVR. case d/w and agree with current management with goal to keep average HR around 100. d/w cA. Continue long-term anticoagulation with Coumadin, INR is noted to be 2.6. Continue telemetry monitoring and supportive care. (3) CHF exacerbation Current Visit: Yes Status: Acute Assessment and plan: Improving clinically. Cardiology follow-up appreciated, agree with current management. Noted to have neck negative fluid balance of 1.9 L yesterday. Will change Lasix to 40mg PO twice daily. Monitor renal function, currently improving. Continue fluid restriction and daily weights with urine output monitoring. Supplemental oxygen as needed. Patient will need home oxygen evaluation prior to discharge. Supportive care. PT/OT evaluation, patient will benefit from [facility]; Qualifiers: Congestive heart failure type: systolic Qualified Code(s): I50.23 - Acute on chronic systolic (congestive) heart failure (4) COPD (chronic obstructive pulmonary disease) Current Visit: Yes Status: Chronic Qualifiers: COPD type: unspecified COPD Qualified Code(s): J44.9 - Chronic obstructive pulmonary disease, unspecified (5) Prostate cancer Current Visit: Yes Status: Resolved (6) History of pulmonary embolism Current Visit: Yes Status: Chronic Assessment and plan: Patient has history of recurrent DVT and pulmonary embolism for which he is on Coumadin. Continue the same. INR noted to be therapeutic. (7) Coronary artery disease Current Visit: Yes Status: Chronic Qualifiers: Coronary Disease-Associated Artery/Lesion type: [place] artery [place] vs. transplanted heart: [place] heart Associated angina: without angina Qualified Code(s): I25.10 - Atherosclerotic heart disease of [place] coronary artery without angina pectoris (8) Hypokalemia Current Visit: Yes Status: Resolved - Subjective Interval history: Feels well; denies chest pain, improving dyspnea; no palpitations or dizziness; reports nasal dryness and feeling congested/stuffy with O2; - Constitutional Vitals: Temp Pulse Resp BP Pulse Ox 98.0 F 117 16 99/70 98 01/11/17 15:08 01/11/17 15:08 01/11/17 11:41 01/11/17 15:08 01/11/17 15:08 General appearance: Present: A&O X 3, answers questions appropriately - Respiratory Respiratory exam: Present: CTAB. Absent: accessory muscle use, rales, rhonchi, wheezes - Cardiovascular Cardiovascular exam: Present: irregular rhythm, +S1, +S2, tachycardia. Absent: diastolic murmur, gallop, rubs, systolic murmur - GI/Abdominal GI/Abdominal exam: Present: normal bowel sounds, soft, no peritoneal signs. Absent: distended, tenderness - Extremities Exam Extremities exam: Present: full ROM, warm, radial pulses palpable and symetrical. Absent: calf tenderness, cyanotic, pedal edema - Neurological Exam Neurological exam: Present: CN II-XII intact, oriented X3, no focal deficits. Absent: pronater drift, facial droop, speech deficit Internal Medicine: Result - Labs CBC & Chem 7: 01/08/17 04:36 01/11/17 08:10 Labs: BMP 01/11/17 08:10 Sodium 142 Potassium 3.7 Chloride 106 Carbon Dioxide 29 BUN 21 Creatinine 1.35 H Glucose 81 Calcium 8.5 L - ABG Interpretation ABG results: PT/INR, D-dimer PT 29.0 Seconds (9.4-12.1) H 01/11/17 08:10 - VTE Reasons for not Prescribing Prophylaxis: Not indicated-Anticoagulated or INR therapeutic Consult Discharge Plan - Plan Referrals: Artis Frausto MD [Primary Care Provider] - 01/14/17 11:30 am
[2017-01-11] MEDS ORDERED: *HR* Metoprolol 5 MG/5 ML VIAL IVP PRN (18:00)
[2017-01-11] MEDS ORDERED: *HR* Warfarin 4 MG TABLET PO ONE (18:00)
[2017-01-11] MEDS ORDERED: Insulin DETEMIR 100 UNIT/ML X5UNITS SQ SCH (21:00)
[2017-01-12] MEDS: Acetaminophen 325 MG TABLET PO PRN (00:28)
[2017-01-12] MEDS: Levalbuterol Neb 1.25 MG/3 ML IH SCH ×4 (01:19→15:55)
[2017-01-12 05:02] LABS: INR 2.5; Prothrombin Time 27.5 Seconds (9.4-12.1)
[2017-01-12 05:06] LABS: BUN/Creatinine Ratio 18 (6-26); Blood Urea Nitrogen 24 mg/dL (8-26); Carbon Dioxide 24 mEq/L (19-29); Chloride 106 mEq/L (98-109); Glucose 83 mg/dL (70-99); Osmolality,Calculated 289 (280-300); Potassium 3.9 mEq/L (3.5-4.5); Sodium 138 mEq/L (136-145); eGFR For African Americans > 60 (> 60); eGFR For Non-African Americans 53 (> 60)
[2017-01-12 05:07] LABS: Calcium 8.4 mg/dL (8.6-10.8)
[2017-01-12] MEDS: Furosemide 40 MG TABLET PO SCH (07:50)
[2017-01-12] MEDS: Aspirin 81 MG TAB.CHEW PO SCH (07:50)
[2017-01-12] MEDS: Tiotropium 18 MCG inhalation IH SCH (10:50)
--- NOTE | 2017-01-12 14:14 | Discharge Summary ---
Date of Encounter: 01/12/17 Time of Encounter: 14:11 - Discharge Diagnosis (1) CHRISTOFER (acute kidney injury) Priority: Primary Status: Acute (2) Atrial fibrillation with rapid ventricular response Priority: Primary Status: Acute (3) CHF exacerbation Priority: Primary Status: Acute Qualifiers: Congestive heart failure type: systolic Qualified Code(s): I50.23 - Acute on chronic systolic (congestive) heart failure (4) COPD (chronic obstructive pulmonary disease) Priority: Secondary Status: Chronic Qualifiers: COPD type: unspecified COPD Qualified Code(s): J44.9 - Chronic obstructive pulmonary disease, unspecified (5) Prostate cancer Priority: Secondary Status: Resolved (6) History of pulmonary embolism Priority: Secondary Status: Chronic (7) Coronary artery disease Priority: Secondary Status: Chronic Qualifiers: Coronary Disease-Associated Artery/Lesion type: [place] artery [place] vs. transplanted heart: [place] heart Associated angina: without angina Qualified Code(s): I25.10 - Atherosclerotic heart disease of [place] coronary artery without angina pectoris (8) Hypokalemia Priority: Primary Status: Resolved - Discharge Medications Prescriptions: Metoprolol XL (24 HR) Succ [Toprol Xl] 50 mg PO DAILY #30 tab.er.24h Potassium Chloride 10 meq PO DAILY #30 tab.er.prt Saline Nasal [place] [[place] Nasal [place]] 2 spray NS QID PRN 20 Days PRN Reason: Congestion Home Medications: Albuterol Sulfate [Proair Hfa] 2 puff IH Q4H PRN 01/05/17 [History] Aspirin 81 mg PO DAILY #30 tab.chew 01/05/17 [Rx] Furosemide [Lasix] 20 mg PO QPM 01/05/17 [History] Warfarin [Coumadin] 5 mg PO SUMOTUTHSA 01/05/17 [History] Furosemide [Lasix] 40 mg PO QAM 01/07/17 [History] Tiotropium [place] [Spiriva] 18 mcg IH DAILY 01/07/17 [History] Warfarin [Coumadin] 7.5 mg PO FR 01/07/17 [History] Warfarin [Coumadin] 10 mg PO WE 01/07/17 [History] Metoprolol XL (24 HR) Succ [Toprol Xl] 50 mg PO DAILY #30 tab.er.24h 01/12/17 [ Rx] Potassium Chloride 10 meq PO DAILY #30 tab.er.prt 01/12/17 [Rx] Saline Nasal [place] [[place] Nasal [place]] 2 spray NS QID PRN 20 Days 01/12/17 [Rx] Allergies/Adverse Reactions: Allergies No Known Allergies Allergy (Verified 01/05/17 06:36) Date of admission: 01/07/17 23:11 Primary care physician: Artis Frausto MD Consults: 01/10/17 11:19 dietary consult [Consult to Nutrition] [CONS] Routine Comment: LOW SODIUM DIET Consulting Provider: NUTRITION Reason for Dietary Consult: Diet Education 01/10/17 14:36 Consult to Occupational Therapy [CONS] Routine Comment: Evaluate, develop and implement POC Consult to Physical Therapy [CONS] Routine Comment: Evaluate, develop and implement POC Discharging clinician: Dee Oreilly Anticipated date of discharge: 01/12/17 - Patient Status Disposition: Home Health Service Condition: Fair Functional capacity at discharge: independent ambulation Overall status at discharge: patient is progressing back to baseline - Discharge Instructions Instructions: Metoprolol (By mouth), Potassium Chloride (By mouth), Warfarin ( By mouth), Atrial Fibrillation (DC), Fluid Restriction (DC) Follow Up With: Artis Frausto MD [Primary Care Provider] - 01/14/17 11:30 am Judith Christensen CNP [Partnered Physician] - 01/22/17 2:30 pm Additional Instructions: F/up with [facility] in 1-2 weeks - Diet and Activity Activity: increase activity as tolerated, wear oxygen at all times Diet: low fat, low cholesterol, low salt diet, other (fluid restriction to 1.5L/ day) Hospital course: Mr. Alejandro is a 81 year old male with the above medical problems was admitted with worsening shortness of breath. He was noted to be in atrial fibrillation with RVR along with acute CHF and started on IV Amiodarone and Lasix drips due to borderline low BP. His HR and BP improved by the next day. Cardiology was consulted and recommended low dose Metoprolol along with IV Lasix pushes as he had acute on probably chronic renal insufficiency. His respiratory status gradually improved and he was able to have appropriate urine output after being placed on [place]. CHF precautions were continued including fluid restriction and patient and family were educated regarding the same throughout this hospital stay. His renal function gradually improved and Lasix was changed to PO form. 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 LHC was done which showed mild to moderate 3-vessel disease, no intervention recommended. Patient had difficult to control HR during his stay and his Metoprolol is increased to 50mg daily. He was not started on ACEI due to acute renal injury and low BP, which may be considered as an outpatient. Patient continues to require supplemental O2 and he does qualify and would benefit from 3L/min supplemental home O2 via [place], and he is mobile at home. PT/OT screening was done and patient was deemed safe to return home. [facility] referral is made for nursing services. He is medically stable for discharge at this time with outpatient close Cardiology f/up. - Time Spent with Patient Total time spent providing and/or coordinating discharge services: Greater than 30 minutes (50 min) - Constitutional Vitals: Temp Pulse Resp BP Pulse Ox 97.3 F L 100 18 98/58 94 L 01/12/17 10:41 01/12/17 10:41 01/12/17 10:50 01/12/17 10:41 01/12/17 10:50 General appearance: Present: A&O X 3, answers questions appropriately - Respiratory Respiratory exam: Present: CTAB. Absent: accessory muscle use, rales, rhonchi, wheezes - Cardiovascular Cardiovascular exam: Present: irregular rhythm, +S1, +S2, tachycardia. Absent: diastolic murmur, gallop, rubs, systolic murmur - VTE Reasons for not Prescribing Prophylaxis: Not indicated-Anticoagulated or INR therapeutic
--- NOTE | 2017-01-12 14:19 | Physician Discharge Referral ---
Home Health/Hosp Referral Info Transfer to: Home Health Attending Provider: Dee Oreilly Provider in Charge Post Discharge: PCP - Diagnosis (1) CHRISTOFER (acute kidney injury) Priority: Primary Status: Acute (2) Atrial fibrillation with rapid ventricular response Priority: Primary Status: Acute (3) CHF exacerbation Priority: Primary Status: Acute (4) COPD (chronic obstructive pulmonary disease) Priority: Secondary Status: Chronic (5) Prostate cancer Priority: Secondary Status: Resolved (6) History of pulmonary embolism Priority: Secondary Status: Chronic (7) Coronary artery disease Priority: Secondary Status: Chronic (8) Hypokalemia Priority: Primary Status: Resolved - Respiratory Orders Oxygen / L per min (3L/min via [place]) Smoking Cessation: Smoking cessation has been advised. For more information, call the [employer]uit Line at 8-125-OHLK-NOW. - Diet/Nutrition Diet/Nutrition Orders: No Added Salt (MELODY), Cardiac (fluid restriction to 1.5L/ day) - Activity Activity Orders: Ambulate - Services Needed Following services are medically necessary services: Nursing - Transfer Medications Prescriptions: Metoprolol XL (24 HR) Succ [Toprol Xl] 50 mg PO DAILY #30 tab.er.24h Potassium Chloride 10 meq PO DAILY #30 tab.er.prt Saline Nasal [place] [[place] Nasal [place]] 2 spray NS QID PRN 20 Days PRN Reason: Congestion Home Medications: Albuterol Sulfate [Proair Hfa] 2 puff IH Q4H PRN 01/05/17 [History] Aspirin 81 mg PO DAILY #30 tab.chew 01/05/17 [Rx] Furosemide [Lasix] 20 mg PO QPM 01/05/17 [History] Warfarin [Coumadin] 5 mg PO SUMOTUTHSA 01/05/17 [History] Furosemide [Lasix] 40 mg PO QAM 01/07/17 [History] Tiotropium [place] [Spiriva] 18 mcg IH DAILY 01/07/17 [History] Warfarin [Coumadin] 7.5 mg PO FR 01/07/17 [History] Warfarin [Coumadin] 10 mg PO WE 01/07/17 [History] Metoprolol XL (24 HR) Succ [Toprol Xl] 50 mg PO DAILY #30 tab.er.24h 01/12/17 [ Rx] Potassium Chloride 10 meq PO DAILY #30 tab.er.prt 01/12/17 [Rx] Saline Nasal [place] [[place] Nasal [place]] 2 spray NS QID PRN 20 Days 01/12/17 [Rx] Allergies/Adverse Reactions: Allergies No Known Allergies Allergy (Verified 01/05/17 06:36) Certification: Further, I certify that my clinical findings support that this patient is homebound (i.e. absences from home require considerable and taxing effort and are for medical reasons or jainism services or infrequently or short duration when for other reasons) because: Homebound Reason: Leaving home requires considerable and taxing effort due to condition, Severity of cardiac or pulmonary status limits activity tolerance Attestation: My signature below is to certify that this patient is under my care and that I, or nurse practitioner, or a physician's staff physical therapy assistant working with me, has a face-to -face encounter with this patient.
[2017-01-12 15:35] VITALS: BP 108/74
[2017-01-12] MEDS ORDERED: *HR* Warfarin 5 MG TABLET PO ONE (18:00)
[2017-01-14] MEDS ORDERED: *HR* Warfarin 10 MG TABLET PO SCH (18:00)
== END 2017-01-12 16:09 | disposition home health service (06) | DRG 308 ==
LOC: EMEROO 13:38 → 2NNU 13:38 → SUATTDRO 23:11 → 2ANU 01-10 23:41
PROVIDERS: ADMIT Internal Medicine; ATTEND Internal Medicine